=== PATIENT | male | born 1985 | race African-American/Black ===

== ENCOUNTER 2016-09-30 23:56 | Emergency (ER) | payer MEDICAID, OTHER ==
[~2016-09-30] VITALS: Ht 193 cm; Wt 106.8 kg
[~2016-09-30 23:56] MED LIST: NOCURR
[2016-10-01] MEDS ORDERED: IBUP-1546 PO (01:05)
[2016-10-01] MEDS ORDERED: ONDANSETRON HCL 4 MG/2 ML VIAL IM ONE (03:45)
[2016-10-01] MEDS ORDERED: MORPHINE SULFATE 10 MG/ML SYRINGE IM ONE (03:45)
[2016-10-01 05:35] VITALS: BP 135/81
== END 2016-10-01 05:42 | disposition home or self-care (01) ==
LOC: EMS 23:58
DX: S82.841A Displaced bimalleolar fracture of right lower leg, initial encounter for closed fracture (principal); S82.61XA Displaced fracture of lateral malleolus of right fibula, initial encounter for closed fracture; S09.90XA Unspecified injury of head, initial encounter; F12.90 Cannabis use, unspecified, uncomplicated; F17.210 Nicotine dependence, cigarettes, uncomplicated; W21.05XA Struck by basketball, initial encounter; Y93.67 Activity, basketball; Y92.89 Other specified places as the place of occurrence of the external cause; Y99.8 Other external cause status
CPT/HCPCS: 29515; 73610; 96372; 99284; 99406; J2270; J2405